=== PATIENT | female | born 1950 | race Caucasian/White ===

== ENCOUNTER → 2017-03-14 | Outpatient (CLI) | payer OTHER, BC ==
[~2017-03-14] VITALS: Ht 160 cm; Wt 79.4 kg
[~2017-03-14] MED LIST: ALTACE5 MG PO; ASCORBIC ACID100 MG PO; GLUCOVANCE 51 TABLET PO; LIPITOR20 MG PO; TRULICITY0.75 MG/0. SC; VITAMIN B-12250 MCG PO; VITAMIN D-32000 UNI2 PO; WOMEN'S DAILY1 EACH PO
[2017-03-14 11:26] LABS: POINT-OF-CARE METER ID UU14174212
== END | disposition home or self-care (01) ==
LOC: AMB 10:24
PROVIDERS: Internal Medicine
PROC: 0DJD8ZZ Inspection of Lower Intestinal Tract, Via Natural or Artificial Opening Endoscopic (ICD-10-PCS; principal; 2017-03-14)
DX: Z12.11 Encounter for screening for malignant neoplasm of colon (principal); K64.8 Other hemorrhoids; E78.00 Pure hypercholesterolemia, unspecified; I10 Essential (primary) hypertension; E11.40 Type 2 diabetes mellitus with diabetic neuropathy, unspecified; Z83.3 Family history of diabetes mellitus; Z83.49 Family history of other endocrine, nutritional and metabolic diseases; Z80.9 Family history of malignant neoplasm, unspecified
CPT/HCPCS: 82948